=== PATIENT | female | born 1970 | race Caucasian/White ===

== ENCOUNTER 2016-10-25 18:37 | Emergency (ER) | payer MEDICAID ==
[2016-10-25 19:41] LABS: BASOPHIL# 0.1 X 10^3uL (0.0-0.1); BASOPHILS 0.5 % (0.0-2.0); EOSINOPHILS 0.5 % (0.0-6.0); EOSINOPHILS# 0.1 X 10^3uL (0.0-0.4); HEMOGLOBIN 14.8 g/dL (12.0-16.0); LYMPHOCYTES# 2.2 X 10^3uL (0.8-3.8); MEAN CELL VOLUME 84.8 fL (80.0-100.0); MEAN CORPUS. HGB CONCENTRATION 33.6 g/dL (32.0-36.0); MEAN CORPUSCULAR HEMOGLOBIN 28.4 pg (29.0-35.0); MEAN PLATELET VOLUME 8.1 fL (7.4-10.4); MONOCYTES 5.6 % (2.0-10.0); NEUTROPHILS 81.4 % (54.0-75.0); NEUTROPHILS# 14.7 X 10^3uL (2.6-6.7); PLATELET COUNT 485 X 10^3uL (130-440); RED CELL DISTRIBUTION WIDTH 11.9 % (11.5-14.5); WHITE BLOOD COUNT 18.1 X 10^3uL (3.9-10.7)
[2016-10-25] MEDS ORDERED: CLINDAMYCIN/D5W 600 MG/50 ML 600 MG IV ONE (19:42)
[2016-10-25] MEDS ORDERED: KETOROLAC TROMETHAMINE 30 MG/ML VIAL ONE (19:46)
[2016-10-25 19:52] LABS: BLOOD UREA NITROGEN 7 mg/dL (7-17); CALCIUM 9.1 mg/dL (8.4-10.2); CHLORIDE 105 mmol/L (98-107); CREATININE 0.7 mg/dL (0.5-1.0); EST GLOMERULAR FILTRATION RATE > 60 mL/min; GLUCOSE 129 mg/dL (70-100); POTASSIUM 3.7 mmol/L (3.5-5.1); SODIUM 136 mmol/L (137-145)
--- NOTE | 2016-10-25 20:33 | ER NURSING DOCUMENTATION ---
Nurse's Notes [facility] Name:Betzy Almanzar Age:46 yrs Sex:Female :1970 Arrival Date:10/25/2016 Time:18:37 Bed4 Private MD: Diagnosis:Dental Abscess w/ Facial Cellulitis Presentation: 10/25 18:48 Notified ED Physician of Dr. Mark notified. lb 18:48 Acuity: DALLIN 3 lb 19:07 Presenting complaint: Patient states: left lower jaw swelling started last night. p0ut lb on amoxicillin per dentist, swelling and pain worse. Transition of care: Home. 19:07 Method Of Arrival: Walk In lb Triage Assessment: 19:09 General: Appears distressed, uncomfortable, Behavior is appropriate for age. Pain: lb Complains of pain in lower left second molar, lower left first molar, lower left second bicuspid and lower left first bicuspid Pain radiates to submental area and left submandibular area Pain currently is 7 out of 10 on a pain scale. EENT: Oral mucosa is moist. Reports pain in chin and left jaw. Historical: - Allergies: No known drug Allergies; - Home Meds: 1. Tramadol Oral 2. Amoxicillin Oral - PMHx: None; - PSHx: None; - Tetanus: < 10 years. - Ebola Screening: : Patient denies exposure to infectious person. Patient denies travel to an Ebola-affected area in the 21 days before illness onset. . - Immunization history: Flu Vaccine None. - Social history: Smoking status: Patient states was never smoker of tobacco. Patient/guardian denies using alcohol. - Code Status:: Full code. Screenin:11 Infectious Disease Risk None. Abuse screen: Denies threats or abuse. Denies injuries lb from another. Nutritional screening: No deficits noted. Assessment: 19:11 See Triage Assessment done by same RN. lb 19:12 Respiratory: Airway is patent Trachea midline Respiratory effort is even, unlabored, lb Respiratory pattern is regular, Breath sounds are clear bilaterally. Vital Signs: 19:10 BP 138 / 83; Pulse 99; Resp 16; Temp 98.2; Pulse Ox 92% on R/A; Height 5 ft. 5 in. lb (165.10 cm); Pain 7/10; 20:31 BP 116 / 74; Pulse 91; Resp 15; Pulse Ox 94% on R/A; Pain 5/10; lb ED Course: 18:39 Patient arrived in ED. ma1 18:47 Rylee Stoll is Primary Nurse. lb 18:50 Triage completed. 19:10 Brooks Mark MD is Attending Physician. vt 19:11 Valuables Remains with patient. lb 19:11 Inserted peripheral IV: 20 gauge in left antecubital area and blood collected. lb Administered Medications: 19:37 Drug: Clindamycin 600 mg; Route: IVPB; Site: left antecubital; lb 20:02 Follow up: IV Status: Completed infusion; IV Intake: 50ml lb 19:37 Drug: Toradol 30 mg; Route: IVP; Site: left antecubital; lb 20:02 Follow up: Response: Pain is decreased lb 20:30 Drug: HYDROcodone-acetaminophen (5mg/325 mg) 1-2 tabs 1 tabs; Route: PO; lb 20:30 Follow up: Response: Pharmacy closed - take home med pack lb Intake: 20:02 IV: 50ml; Total: 50ml. Outcome: 20:21 Discharge ordered by . vt 20:31 Discharged to home ambulatory. 20:31 Condition: improved 20:31 Discharge Assessment: Patient awake, alert and oriented x 3. No cognitive and/or functional deficits noted. Patient verbalized understanding of disposition instructions. 20:31 Instructed on discharge instructions, follow up and referral plans. no drinking with medication, no driving heavy equipment, pt to follow as outpatient for further IV antiobotics 20:32 Patient left the ED. 10/26 10:53 Discharge F/U Call: Spoke with: patient. other: Name: Will return for abx mk2 Signatures: Brooks Mark MD MD vt Mervat Lugo, RN RN mk2 Rylee Stoll Marlin Watkins ar1
--- NOTE | 2016-10-25 20:33 | ER PHYSICIAN DOCUMENTATION ---
Physician Documentation [facility] Name:Betzy Almanzar Age:46 yrs Sex:Female :1970 Arrival Date:10/25/2016 Time:18:37 Bed4 Private MD: Brooks Deal Disposition: 10/25/16 20:21 Discharged to Home/Self Care. Impression: Dental Abscess w/ Facial Cellulitis. - Condition is Fair. - Discharge Instructions: DENTAL ABSCESS w/ Facial Cellulitis. - Prescriptions for Clindamycin HCl 300 mg Oral Capsule - take 1 capsule by ORAL route every 6 hours for 10 days; 40 capsule. - Medical Reconciliation form form. - Follow up: Emergency Department; When: 1 - 2 days; Reason: Recheck today's complaints. - Problem is new. - Symptoms have improved. HPI: 10/25 19:22 This 46 yrs old Female presents to ER via Walk In with complaints of Facial sc Swelling, Toothache. 19:22 The patient presents with pain, that is acute, swelling. The problem is located in the sc left submandibular area. Onset: The symptom(s)/episode began/occurred yesterday, 4 month(s) ago, and became worse yesterday. Associated signs and symptoms: The patient has no apparent associated signs or symptoms. Severity of symptoms: At their worst the symptoms were moderate. Historical: - Allergies: No known drug Allergies; - Home Meds: 1. Tramadol Oral 2. Amoxicillin Oral - PMHx: None; - PSHx: None; - Tetanus: < 10 years. - Ebola Screening: : Patient denies exposure to infectious person. Patient denies travel to an Ebola-affected area in the 21 days before illness onset. . - Immunization history: Flu Vaccine None. - Social history: Smoking status: Patient states was never smoker of tobacco. Patient/guardian denies using alcohol. - Code Status:: Full code. ROS: 19:23 Constitutional: Negative for fever, chills, and weight loss. sc Eyes: Negative for injury, pain, redness, and discharge. Cardiovascular: Negative for chest pain, palpitations, and edema. Respiratory: Negative for shortness of breath, cough, wheezing, and pleuritic chest pain. Back: Negative for injury and pain. Skin: Negative for injury, rash, and discoloration. 19:23 Neuro: Negative for headache, weakness, numbness, tingling, and seizure. va 19:23 ENT: Positive for dental pain. Exam: Constitutional: This is a well developed, well nourished patient who is awake, alert, and in no acute distress. Head/Face: Normocephalic, atraumatic. Eyes: Pupils equal round and reactive to light, extra-ocular motions intact. Lids and lashes normal. Conjunctiva and sclera are non-icteric and not injected. Cornea within normal limits. Periorbital areas with no swelling, redness, or edema. Neck: Trachea midline, no thyromegaly or masses palpated, and no cervical lymphadenopathy. Supple, full range of motion without nuchal rigidity, or vertebral point tenderness. No meningismus. Cardiovascular: Regular rate and rhythm with a normal S1 and S2. No gallops, murmurs, or rubs. Normal PMI, no JVD. No pulse deficits. Back: No spinal tenderness. No costovertebral tenderness. Full range of motion. Skin: Warm, dry with normal turgor. Normal color with no rashes, no lesions, and no evidence of cellulitis. 19:23 Neuro: Awake and alert, GCS 15, oriented to person, place, time, and situation. va Cranial nerves II-XII grossly intact. Motor strength 5/5 in all extremities. Sensory grossly intact. Cerebellar exam normal. Normal gait. 19:23 ENT: Mouth: Oral mucosa: pink and intact, moist, Dental exam: cellulitis, that is moderate, dental caries, gum swelling. Vital Signs: 19:10 BP 138 / 83; Pulse 99; Resp 16; Temp 98.2; Pulse Ox 92% on R/A; Height 5 ft. 5 in. lb (165.10 cm); Pain 7/10; 20:31 BP 116 / 74; Pulse 91; Resp 15; Pulse Ox 94% on R/A; Pain 5/10; lb MDM: 19:10 Patient medically screened. va 19:24 Differential diagnosis: dental caries, dental abscess. Data reviewed: vital signs, va nurses notes, lab test result(s), and as a result, I will continue to observe the patient, administer antibiotics administer IV fluids. Counseling: I had a detailed discussion with the patient and/or guardian regarding: the historical points, exam findings, and any diagnostic results supporting the discharge/admit diagnosis, the need for outpatient follow up. 20:21 ED course: Gave outpt orders for iv clindamycin x 5 doses. va 10/25 19:46 Order name: CBC AUTO DIF, MDIF/RMOR IF IND; Complete Time: 20:11 EDMS 10/25 20:11 Interpretation: Abnormal: WHITE BLOOD COUNT 18.1; NEUTROPHILS 81.4. va 10/25 19:57 Order name: BASIC METABOLIC PANEL; Complete Time: 20:11 EDMS 10/25 20:11 Interpretation: Normal Except. va 10/25 18:51 Order name: Iv Saline Lock; Complete Time: 19:11 lb Dispensed Medications: 19:37 Drug: Clindamycin 600 mg; Route: IVPB; Site: left antecubital; lb 20:02 Follow up: IV Status: Completed infusion; IV Intake: 50ml lb 19:37 Drug: Toradol 30 mg; Route: IVP; Site: left antecubital; lb 20:02 Follow up: Response: Pain is decreased lb 20:30 Drug: HYDROcodone-acetaminophen (5mg/325 mg) 1-2 tabs 1 tabs; Route: PO; lb 20:30 Follow up: Response: Pharmacy closed - take home med pack lb Signatures: Brooks Mark MD MD sc Bollock, Lynda lb
[2016-10-25] MEDS ORDERED: HYDROcodone/APAP PREPAC 5/325 1 TAB TABLET PO ONE (20:37)
== END 2016-10-25 20:32 | disposition home or self-care (01) ==
LOC: ER 18:37
DX: K04.6 Periapical abscess with sinus (principal); K08.89 Other specified disorders of teeth and supporting structures; K02.9 Dental caries, unspecified
CPT/HCPCS: 80048; 85025; 87040; 96365; 96375; 99283; J1885